=== PATIENT | male | born 1995 | race Hispanic/Latino ===

== ENCOUNTER 2018-05-27 12:14 | Emergency (ER) | payer BC ==
[2018-05-27 12:19] VITALS: BP 146/84; PULSE 102; RESP 16; TEMP 98.6; O2SAT 99
--- NOTE | 2018-05-27 12:54 | ED PDOC ---
HPI: General Adult Time Seen by Provider: 05/27/18 12:34 Chief Complaint (Nursing): Rib Injury Chief Complaint (Provider): Rib Injury History Per: Patient History/Exam Limitations: no limitations Current Symptoms Are (Timing): Still Present Additional Complaint(s): Rosalio Hardin is a 23 year old male who is presenting to the emergency room for evaluation of rib pain, s/p injury while playing flag football about 1.5 hours prior to arrival. Patient states that he was hit on the right side but denies any other injuries. He offers no other medical complaints at this time. PMD: Dr. Scruggs in [place], [place] Past Medical History Reviewed: Historical Data, Nursing Documentation, Vital Signs Vital Signs: Last Vital Signs Temp 98.6 F 05/27/18 12:17 Pulse 102 H 05/27/18 12:17 Resp 16 05/27/18 12:17 BP 146/84 05/27/18 12:17 Pulse Ox 99 05/27/18 12:17 - Medical History PMH: No Chronic Diseases - Surgical History Other surgeries: nose surgery - Family History Family History: States: No Known Family Hx - Living Arrangements Living Arrangements: With Family - Social History Current smoker - smoking cessation education provided: No Alcohol: Social Drugs: Denies - Home Medications Home Medications: Ambulatory Orders Medication Instructions Recorded Ibuprofen [Motrin Tab] 800 mg PO Q8 PRN #24 tab 05/27/18 oxyCODONE/Acetaminophen [Percocet 1 ea PO Q6H PRN #15 tab 05/27/18 5/325 mg Tab] - Allergies Allergies/Adverse Reactions: Allergies Allergy/AdvReac Type Severity Reaction Status Date / Time No Known Allergies Allergy Verified 05/27/18 12:16 Review of Systems ROS Statement: Except As Marked, All Systems Reviewed And Found Negative Musculoskeletal: Positive for: Other (right rib injury) Physical Exam - Reviewed Nursing Documentation Reviewed: Yes Vital Signs Reviewed: Yes - Physical Exam Appears: Positive for: Well, Non-toxic, No Acute Distress Head Exam: Positive for: ATRAUMATIC, NORMAL INSPECTION, NORMOCEPHALIC Skin: Positive for: Normal Color. Negative for: Rash Eye Exam: Positive for: Normal appearance Neck: Positive for: Normal Cardiovascular/Chest: Positive for: Regular Rate, Rhythm, Other (diffuse tenderness to right lateral chest wall, no ecchymosis, no palpable bony deform ity). Negative for: Murmur Respiratory: Positive for: Normal Breath Sounds. Negative for: Respiratory Distress Gastrointestinal/Abdominal: Positive for: Normal Exam, Soft. Negative for: Tenderness, Distended, Guarding, Rebound Back: Negative for: Vertebral Tenderness Extremity: Positive for: Normal ROM Neurologic/Psych: Positive for: Alert, Oriented. Negative for: Motor/Sensory Deficits - ECG Interpretation Of ECG: NSR 98 bpm, no acute findings, reviewed by PA and ED attending O2 Sat by Pulse Oximetry: 99 (RA) Pulse Ox Interpretation: Normal - Other Rad CXR with right rib series X-Ray: Interpreted by Me, Viewed By Me X-Ray Interpretation: non-displaced fracture to right 8th rib Medical Decision Making Medical Decision Making: Time: 12:46 Impression: 23 year old male with rib injury Plan: --Toradol 60 mg IM --Tylenol 975 mg PO --Ultram 50 mg PO --X-ray right ribs and chest Patient is aware of x-ray results, all questions answered. Patient given incentive spirometer. Perceptions for Motrin and Percocet provided. Patient was advised ice and rest affected area and follow-up with primary doctor in 2-3 days. Scribe Attestation: Documented by Pinky Driscoll, acting as a scribe for Ying Pena PA-C. Provider Scribe Attestation: All medical record entries made by the Scribe were at my direction and personally dictated by me. I have reviewed the chart and agree that the record accurately reflects my personal performance of the history, physical exam, medical decision making, and the department course for this patient. I have also personally directed, reviewed, and agree with the discharge instructions and disposition. Disposition - Clinical Impression Clinical Impression: Rib fracture - Patient ED Disposition Is Patient to be Admitted: No Counseled Patient/Family Regarding: Studies Performed, Diagnosis, Need For Followup, Rx Given - Disposition Referrals: [facility] [Outside] Disposition: Routine/Home Disposition Time: 13:28 Condition: STABLE Additional Instructions: Apply ice and rest affected area as much as possible. Use incentive spirometer as directed. Take prescription meds as directed as needed for pain. Avoid heavy lifting or strenuous activity. Follow-up with primary doctor in 2-3 days. Prescriptions: Ibuprofen [Motrin Tab] 800 mg PO Q8 PRN #24 tab PRN Reason: Pain, Moderate (4-7) oxyCODONE/Acetaminophen [Percocet 5/325 mg Tab] 1 ea PO Q6H PRN #15 tab PRN Reason: Pain, Severe (8-10) Instructions: Rib Fractures in Adults, How to Use an Incentive Spirometer Forms: [email or web address] (Turkmen), [facility] ED School/Work Excuse
--- NOTE | 2018-05-27 17:55 | RAD ---
Date of service: 05/27/2018 PROCEDURE: Radiographs of the Chest and Right Ribs. HISTORY: trauma COMPARISON: None available. TECHNIQUE: Frontal radiograph of the chest and multiple oblique radiographs of the right ribs were obtained. FINDINGS: RIGHT RIBS: No fracture or focal lesion visualized. LUNGS: Clear. PLEURA: No pneumothorax or pleural fluid. CARDIOVASCULAR: Normal sized heart. No pulmonary vascular congestion. OTHER FINDINGS: None. IMPRESSION: Unremarkable radiographs of the chest and right ribs. No right rib fracture.
== END 2018-05-27 13:57 | disposition home or self-care (01) ==
LOC: H.ER 12:14
DX: S29.9XXA Unspecified injury of thorax, initial encounter (principal); W22.8XXA Striking against or struck by other objects, initial encounter; Y92.321 Football field as the place of occurrence of the external cause
CPT/HCPCS: 71101; 96372; 99283; J1885